=== PATIENT | female | born 1955 | race Caucasian/White ===

== ENCOUNTER → 2016-11-26 | Outpatient (CLI) | payer OTHER ==
[~2016-11-26] MED LIST: ASPIRIN EC81 M1 PO; FISH OIL 1,001000 M1 PO; METOPROLOL SUCC25 MG PO; MULTI-DAY1 TAB PO; PERCOCET 5-3251 TAB PO; PRILOSEC20 M1 PO; ZESTRIL40 MG PO
--- NOTE | ~2016-11-26 | HM ---
Unit #: [id number] #: [id number] Patient: HARMEET TALLEY [id number] [address] [address] [id number] MR#: [id number] NAME: HARMEET TALLEY : 1955 SEX: F STUDY DATE/TIME: UNIT: [facility] ROOM: STUDY DESCRIPTION: Holter Monitor Attending Physician: Ghada Elaine M.D. Referring Physician: Ghada Elaine M.D. Primary Care Physician: Ghada Elaine M.D. CARDIOLOGY REPORT EXAM Holter monitor INDICATION Palpitations. SUMMARY The patient was monitored for 24 hours. A total of 97,217 QRS complexes were analyzed. The rhythm was sinus. The average heart rate was 68 beats per minute. Minimum heart rate of 49 beats per minute occurred at approximately 12:50 a.m., maximum heart rate 125 beats per minute at approximately 11:30 a.m. There were no pauses. SUPRAVENTRICULAR ECTOPY: Six isolated beats with one seven-beat run occurring at 130 beats per minute, at approximately 9:10 p.m. ventricular ectopy: Thirty-nine isolated beats with one couplet and no VT runs. SYMPTOMS: None. PATIENT ACTIVATED EVENTS: None. IMPRESSION Holter monitor is normal, with no clinically significant supraventricular or ventricular ectopy. The minor ectopic beats noted are not clinically significant. Dictated by... Delbert Rose/ahmet TD: 12/01/2016 20:17 JOB #: [id number] Unit #: [id number] #: [id number] Patient: HARMEET TALLEY CARDIOLOGY REPORT Page 1 of 1 X Vinayak Cox MD HOLTER MONITOR REPORT
== END | disposition left against medical advice (07) ==
LOC: CECH 09:18
DX: R00.2 Palpitations (principal); R07.9 Chest pain, unspecified
CPT/HCPCS: 93225; 93226; 93306